=== PATIENT | female | born 1985 | race Caucasian/White ===

== ENCOUNTER 2020-03-27 09:12 | Outpatient (REF) | payer OTHER, SELFPAY ==
--- NOTE | 2020-03-27 09:20 | XR_ITS ---
EXAMINATION: XR FOOT, LEFT CLINICAL INFORMATION: Bunionette of left foot. COMPARISON: None TECHNIQUE: AP, lateral, and oblique views of the left foot. FINDINGS: The bones and soft tissues are normal. No fracture. Alignment is anatomic. Joint spaces are maintained. XR/XR foot LT min 3V IMPRESSION: Unremarkable left foot exam.
== END 2020-03-27 09:13 | disposition home or self-care (01) ==
LOC: HO.HMGCX 09:12
PROVIDERS: PCP Internal Medicine; Visit Provider Nurse Practitioner Family
DX: M21.622 Bunionette of left foot (principal)
CPT/HCPCS: 73630

== ENCOUNTER 2020-11-01 11:13 | Outpatient (REF) | payer OTHER, SELFPAY | END 2020-11-01 11:14 | disposition home or self-care (01) | LOC: HO.LNP 11:13 | PROVIDERS: Visit Provider Internal Medicine | DX: J06.9 Acute upper respiratory infection, unspecified (principal); Z20.822 Contact with and (suspected) exposure to COVID-19 | CPT/HCPCS: U0003; U0005 ==

== ENCOUNTER 2021-03-06 09:20 | Outpatient (REF) | payer OTHER, SELFPAY ==
[2021-03-06 11:56] LABS: Alanine Aminotransferase 17 U/L (0-31); Anion Gap 11 (12-20); Aspartate Amino Transferase 19 U/L (5-31); Blood Urea Nitrogen 9 mg/dL (9-16); Calcium 9.4 mg/dL (8.4-10.2); Carbon Dioxide 24 mmol/L (22-29); Chloride 107 mmol/L (96-108); Cholesterol 189 mg/dL; Estimated Glomerular Filt Rate > 60; Glucose Fasting 88 mg/dL (60-99); HDL Cholesterol 44 mg/dL; LDL Cholesterol Calculated 124 mg/dl; Potassium 4.3 mmol/L (3.3-5.1); Sodium 138 mmol/L (135-145); Triglycerides 105 mg/dL
[2021-03-06 12:19] LABS: Free T4 (Free Thyroxine) 0.99 ng/dL (0.71-1.85); Thyroid Stimulating Hormone 3.34 uIU/mL (0.32-4.0); Vitamin D 25-OH Total 27.4 ng/mL (>30)
[2021-03-07 09:47] LABS: Thyroid Peroxidase Antibodies 96 IU/mL (<9)
== END 2021-03-06 09:21 | disposition home or self-care (01) ==
LOC: HO.HMGCLDS 09:20
PROVIDERS: PCP Internal Medicine; Visit Provider Internal Medicine
DX: Z00.01 Encounter for general adult medical examination with abnormal findings (principal); E04.1 Nontoxic single thyroid nodule; E66.01 Morbid (severe) obesity due to excess calories; F32.A Depression, unspecified; F41.9 Anxiety disorder, unspecified; I10 Essential (primary) hypertension; E03.9 Hypothyroidism, unspecified
CPT/HCPCS: 36415; 80048; 80061; 82306; 84439; 84443; 84450; 84460; 86376

== ENCOUNTER 2021-03-21 15:32 | Outpatient (REF) | payer OTHER, SELFPAY ==
--- NOTE | ~2021-03-21 | US_ITS ---
EXAMINATION: US THYROID CLINICAL INFORMATION: Nontoxic single thyroid nodule. COMPARISON: Ultrasound soft tissue head/neck thyroid dated 09/17/2017 and 10/01/2016. TECHNIQUE: Linear transducer grayscale and color Doppler examination with attention to the region of the thyroid. FINDINGS: SIZE: Measurements of the thyroid lobes and nodules are given in sagittal, anteroposterior and transverse dimensions respectively. Right Thyroid Lobe: 5.8 x 2.0 x 2.1 cm, volume 12.7 mL. Previously 4.7 x 1.9 x 2.0 cm, volume 9.3 mL. Parenchyma: The gland echotexture is heterogeneous. Thyroid vascularity is normal. Left Thyroid Lobe: 5.6 x 1.8 x 2.2 cm, volume 11.6 mL. Previously 5.4 x 1.6 x 2.1 cm, volume 9.5 mL. Parenchyma: The gland echotexture is heterogeneous. Thyroid vascularity is normal. Isthmus: 0.4 cm in maximum AP dimension. Previously 0.4 cm. Estimated total number of nodules greater than or equal to 1 cm: 1. Cuff Knitter nodules are described as follows: 1. Location: Right medial mid posterior. Size: 1.2 x 0.8 x 0.8 cm, volume 0.40 mL. Previously: 0.8 x 0.8 x 0.8 cm, volume 0.27 mL. Nodule characteristics: Composition: Solid (2). Echogenicity: Hypoechoic (2). Shape: Not taller than wide (0). Margins: Smooth (0). Echogenic Foci: None (0). ACR TI-RADS total points: 4 Previous: n/a ACR TI-RADS category: 4 Previous: n/a Significant change in size (>/= 20% in 2 dimensions and minimal increase of 2 mm or 50% or greater increase in volume): No Change in features: No Change in ACR TI-RADS risk category: n/a NODES: No significant lymphadenopathy. 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 A hypoechoic nodule posteriorly in the right midpole demonstrates similar features but has mildly increased in size. Given the interval increase in size, following guidelines below, a follow-up thyroid ultrasound is recommended in one year. ACR TI-RADS RECOMMENDATION REFERENCE: Ultrasound-guided fine-needle aspiration, followup ultrasound, no further follow up. * TR1 (0 point) and TR 2 (2 points): No FNA or follow up * TR3 (3 points): FNA if more than or equal to 2.5 cm in maximum dimension, followup ultrasound in 1, 3 and 5 years if 1.5 to 2.4 cm in maximum dimension. * TR4 (4-6 points): FNA if more than or equal to 1.5 cm in maximum dimension, followup ultrasound in 1, 2, 3 and 5 years if 1 to 1.4 cm in maximum dimension. * TR5 (more than or equal to 7 points): FNA if more than or equal to 1 cm in maximum dimension, followup ultrasound every year for 5 years if 0.5 to 0.9 cm in maximum dimension. * TR3, TR4 or TR5 nodules that are below the size threshold for follow up receive no follow up.
== END 2021-03-21 15:33 | disposition home or self-care (01) ==
LOC: HO.HMGCX 15:32
PROVIDERS: PCP Internal Medicine; Visit Provider Internal Medicine
DX: E04.1 Nontoxic single thyroid nodule (principal)
CPT/HCPCS: 76536

== ENCOUNTER → 2021-05-09 10:10 | Outpatient (BNVA) | payer OTHER, SELFPAY | PROVIDERS: PCP Internal Medicine; Visit Provider Internal Medicine ==

== ENCOUNTER 2021-05-19 11:57 | Outpatient (REF) | payer OTHER, SELFPAY ==
[2021-05-19 13:46] LABS: Alanine Aminotransferase 17 U/L (0-31); Albumin Level 4.2 g/dL (3.5-5.0); Alkaline Phosphatase 51 U/L (39-117); Anion Gap 15 (12-20); Aspartate Amino Transferase 19 U/L (5-31); Bilirubin Total 0.8 mg/dL (0.0-1.0); Blood Urea Nitrogen 11 mg/dL (9-16); Calcium 9.6 mg/dL (8.4-10.2); Carbon Dioxide 26 mmol/L (22-29); Chloride 103 mmol/L (96-108); Estimated Glomerular Filt Rate > 60; Glucose Random 78 mg/dL (60-115); Phosphorus 3.3 mg/dL (2.7-4.5); Potassium 3.9 mmol/L (3.3-5.1); Sodium 140 mmol/L (135-145); Total Protein 7.7 g/dL (6.5-8.0)
[2021-05-19 14:09] LABS: Thyroid Stimulating Hormone 3.01 uIU/mL (0.32-4.0); Vitamin D 25-OH Total 34.9 ng/mL (>30)
[2021-05-21 15:36] LABS: Thyroglobulin Antibodies <1 IU/mL (< or = 1); Thyroid Peroxidase Antibodies 78 IU/mL (<9)
[2021-05-22 14:51] LABS: Calcium (PTHI) 9.7 mg/dL (8.6-10.2); PTHI 49 pg/mL (14-64)
== END 2021-05-19 11:58 | disposition home or self-care (01) ==
LOC: HO.HMGCLDS 11:57
PROVIDERS: PCP Internal Medicine; Visit Provider Internal Medicine
DX: E04.1 Nontoxic single thyroid nodule (principal); E21.3 Hyperparathyroidism, unspecified; E55.9 Vitamin D deficiency, unspecified
CPT/HCPCS: 36415; 80053; 82306; 83970; 84100; 84439; 84443; 86376; 86800

== ENCOUNTER 2021-06-28 13:57 | Outpatient (REF) | payer OTHER, SELFPAY ==
[2021-06-28 16:53] LABS: CT PCR NOT DETECTED (Not Detect.); NG PCR NOT DETECTED (Not Detect.)
== END 2021-06-28 13:58 | disposition home or self-care (01) ==
LOC: HO.LAB 13:57
PROVIDERS: PCP Internal Medicine; Visit Provider Advanced Practice Midwife
DX: Z01.419 Encounter for gynecological examination (general) (routine) without abnormal findings (principal); Z20.2 Contact with and (suspected) exposure to infections with a predominantly sexual mode of transmission
CPT/HCPCS: 87491; 87591

== ENCOUNTER 2021-11-07 08:00 | Outpatient (REF) | payer OTHER, SELFPAY ==
--- NOTE | 2021-11-07 08:36 | PM.OP ---
Brief Operative Note Date of Service: 11/07/21 Pre-op diagnosis: Multinodular Thyroid Procedure: EXAMINATION: US THYROID CLINICAL INFORMATION: Multinodular Thyroid COMPARISON: Prior TECHNIQUE: Linear transducer carson-scale and color Doppler examination with attention to the region of the thyroid. FINDINGS: SIZE: Measurements of the thyroid lobes and nodules are given in sagittal, anteroposterior and transverse dimensions respectively. Right Thyroid Lobe: 5.0 x 1.6 x 2.1 cm, volume 8.8 mL. Parenchyma: The gland echotexture is diffusely heterogenous. Thyroid vascularity is normal. Left Thyroid Lobe: 5.7 x 1.8 x 2.2 cm, volume 11.8 mL. Parenchyma: The gland echotexture is diffusely heterogenous. Thyroid vascularity is normal. Isthmus: 0.3 cm in maximum AP dimension. There are no true thyroid nodules appreciated, only pseudonodules. NODES: No lymphadenopathy were assessed. 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 Surgeon: Maddy Garcia, DO Was an Electrical Controls Designer used for this Procedure?: No Estimated blood loss (mL): 0
== END 2021-11-07 08:01 | disposition home or self-care (01) ==
LOC: HO.US 08:00
PROVIDERS: PCP Internal Medicine; Visit Provider Internal Medicine
DX: E04.1 Nontoxic single thyroid nodule (principal)
CPT/HCPCS: 76536

== ENCOUNTER 2022-11-14 07:55 | Outpatient (REF) | payer OTHER, SELFPAY ==
[2022-11-14 12:20] LABS: Free T4 (Free Thyroxine) 0.94 ng/dL (0.71-1.85); Thyroid Stimulating Hormone 3.63 uIU/mL (0.32-4.0); Vitamin D 25-OH Total 63.3 ng/mL (>30)
== END 2022-11-14 07:56 | disposition home or self-care (01) ==
LOC: HO.HMGCLDS 07:55
PROVIDERS: PCP Internal Medicine; Visit Provider Internal Medicine
DX: E06.3 Autoimmune thyroiditis (principal); E55.9 Vitamin D deficiency, unspecified
CPT/HCPCS: 36415; 82306; 84439; 84443